=== PATIENT | female | born 1965 | race Caucasian/White ===

== ENCOUNTER 2019-09-11 09:39 | Emergency (ER) | payer BC ==
[~2019-09-11] VITALS: Ht 165.1 cm; Wt 104.3 kg
[2019-09-11] MEDS ORDERED: ONDANSETRON HCL INJ 2MG/ML 2ML 2 MG/ML VIAL IV STA (09:56)
[2019-09-11] MEDS: MORPHINE SULFATE 2 MG/ML SYR 1ML IV PRN ×2 (10:18→13:17)
[2019-09-11 10:23] LABS: BASOPHILS % 0.3 % (0.0-1.0); EOSINOPHILS % 0.2 % (0.0-6.0); HEMATOCRIT 41.3 % (34.2-44.1); HEMOGLOBIN 14.2 g/dL (12.0-16.0); LYMPHOCYTES # (AUTO) 1.6 (1.0-3.2); LYMPHOCYTES % 13.5 % (18.0-39.1); MEAN CORPUSCULAR HEMOGLOBIN 31.3 pg (28-32); MEAN CORPUSCULAR HGB CONC 34.4 g/dL (31-35); MONOCYTES # (AUTO) 0.7 (0.2-0.8); MONOCYTES % 5.8 % (4.4-11.3); NEUTROPHILS # (AUTO) 9.6 (2.1-6.9); NEUTROPHILS % 79.9 % (38.7-80.0); PLATELET COUNT 300 x10e3/uL (140-360); RED BLOOD COUNT 4.54 x10e6/uL (3.6-5.1); RED CELL DISTRIBUTION WIDTH 11.7 % (11.7-14.4)
[2019-09-11 10:31] LABS: BILIRUBIN,URINE SMALL (NEGATIVE); CLARITY,URINE CLEAR (CLEAR); COLOR,URINE YELLOW (YELLOW); KETONES,URINE >=160 (NEGATIVE); LEUKOCYTE ESTERASE ,URINE NEGATIVE (NEGATIVE); NITRITE,URINE NEGATIVE (NEGATIVE); PROTEIN,URINE DIPSTICK NEGATIVE (NEGATIVE); URINE UROBILINOGEN 0.2 mg/dL (0.2 - 1)
[2019-09-11 10:41] LABS: ALANINE AMINOTRANSFERASE 16 IU/L (0-55); ALBUMIN/GLOBULIN RATIO 1.2 (0.8-2.0); ALKALINE PHOSPHATASE 86 IU/L (40-150); ANION GAP 13.9 mmol/L (8-16); BLOOD UREA NITROGEN 6 mg/dL (7-26); BUN/CREATININE RATIO 8 (6-25); CALCIUM 9.1 mg/dL (8.4-10.2); CARBON DIOXIDE 22 mmol/L (22-29); CHLORIDE 107 mmol/L (98-107); CREATININE, SERUM 0.73 mg/dL (0.57-1.11); EST GLOMERULAR FILTRATION RATE > 60 ML/MIN (60-); GLUCOSE 129 mg/dL (74-118); POTASSIUM 3.9 mmol/L (3.5-5.1); SODIUM 139 mmol/L (136-145)
[2019-09-11 10:47] LABS: HCG,QUANTITATIVE 1.41 mIU/mL (0-10)
[2019-09-11 10:55] LABS: BACTERIA,URINE MODERATE /HPF; EPITHELIAL CELLS,URINE RARE /LPF
[2019-09-11 10:56] LABS: RBC,URINE 0-5 /HPF (0-5)
--- NOTE | 2019-09-11 11:27 | Diagnostic Imaging Report ---
Abdominal Ultrasound limited. Right upper quadrant. Clinical Diagnosis: Epigastric pain Comparison: None Technique: Multiple transaxial and longitudinal images were obtained through the right upper quadrant of the abdomen abdomen with real time ultrasonography. Low MHz transducer was utilized. Multiple images were submitted for interpretation. Report: Liver: The liver measures 11.9 cm in the right midaxillary line. There are no focal masses. There are no cysts. The echogenicity is normal. Gallbladder: The transverse diameter is within normal limits. The wall measures 3 mm. There are no shadowing stones visualized. There is no pericholecystic fluid. Sonographic Borjas's sign is negative. Biliary tree: There is no evidence of intra or extra hepatic biliary ductal dilatation. The common bile duct measures 4 mm. Portal vein: The portal vein measures 8 mm. Hepatic veins:Unremarkable. Pancreas: The pancreatic tissue is not well seen secondary to overlying bowel gas. Ascites: Absent Pleural Effusion: Absent Right kidney: The right kidney measures 9 x 4.8 x 4.8 cm. There is no mass, cyst or or hydronephrosis. IVC/Aorta: Partially seen segments demonstrate no abnormality. Impression: Unremarkable ultrasound exam of the right upper quadrant. Specifically, the gallbladder appears unremarkable. Signed by: Nicolas Alvarez MD on 09/11/2019 11:23 AM
--- NOTE | 2019-09-11 13:42 | Emergency Department Note ---
History of Present Illnes History of Present Illness Chief Complaint: Abdominal Complaints History of Present Illness This is a 54 year old female Chief Complaint Comment c/o constant epigastric pain radiating to back that started sun night after eating chili describes pain as cramping/bloating feeling denies etoh c/o n/v no diarrhea last time she vomitted was last night denies hematemesis states no chance of due to hysterectomy seen at [facility] last night for same complaint told she had cyst on pancreas still has gallbladder/appendix denies ever smoking social drinker denies drug use. Historian: Patient Arrival Mode: Car Pin Worker Required: No Onset (how long ago): day(s) (2) Location: epigastric/umbillical Quality: stabbing Radiation: Reports back Severity: severe Onset quality: gradual Duration (how long): day(s) (2) Timing of current episode: constant Progression: unchanged Chronicity: new Relieving factors: none Exacerbating factors: none Treatments prior to arrival: other (Bentyl) Past Medical/Family History Physician Review I have reviewed the patient's past medical and family history. Any updates have been documented here. Past Medical History Recent Fever: No Clinical Suspicion of Infectio: No New/Unexplained Change in Ment: No Past Medical History: Hypothyroidism Past Surgical History: Hysterectomy, Tubal Ligation Other Surgery: thyroidectomy Social History Smoking Cessation: Never Smoker Counseling Performed: No Alcohol Use: None Any Illegal Drug Use: No Physically hurt or threatened: No Other Any Pre-Existing Lines (PICC,: No Review of Systems Review of Systems Constitutional: Reports no symptoms EENTM: Reports no symptoms Cardiovascular: Reports no symptoms Respiratory: Reports no symptoms Gastrointestinal: Reports no symptoms, Reports abdominal pain, Reports diarrhea, Reports nausea Genitourinary: Reports no symptoms Musculoskeletal: Reports no symptoms Integumentary: Reports no symptoms Neurological: Reports no symptoms Psychological: Reports no symptoms Endocrine: Reports no symptoms Hematological/Lymphatic: Reports no symptoms Physical Exam Related Data Allergies: Coded Allergies: No Known Allergies (Unverified , 09/11/19) Triage Vital Signs Vital Signs Date Time Temp Pulse Resp B/P (MAP) Pulse Ox O2 Delivery O2 Flow Rate FiO2 09/11/19 09:46 98.1 72 18 167/80 98 Room Air Vital signs reviewed: Yes Physical Exam CONSTITUTIONAL Constitutional: Present well-developed, Present well-nourished, Present distressed HENT HENT: Present normocephalic, Present atraumatic, Present oropharynx clear/m oist, Present nose normal HENT L/R: Present left ext ear normal, Present right ext ear normal EYES Eyes: Reports PERRL, Reports conjunctivae normal NECK Neck: Present ROM normal PULMONARY Pulmonary: Present effort normal, Present breath sounds normal CARDIOVASCULAR Cardiovascular: Present regular rhythm, Present heart sounds normal, Present capillary refill normal, Present normal rate GASTROINTESTINAL Abdominal: Present soft, Present nontender, Present bowel sounds normal GENITOURINARY Genitourinary: Present exam deferred SKIN Skin: Present warm, Present dry MUSCULOSKELETAL Musculoskeletal: Present ROM normal NEUROLOGICAL Neurological: Present alert, Present oriented x 3, Present no gross motor or sensory deficits PSYCHOLOGICAL Psychological: Present mood/affect normal, Present judgement normal Results Laboratory Laboratory Laboratory Tests Test 09/11/19 09:56 Lab results reviewed: Yes Imaging Imaging results reviewed: Yes Diagnostics Tests Diagnostic test(s) reviewed: Yes Assessment & Plan Medical Decision Making MDM 52-year-old female with history of 2 days of abdominal pain which is getting worse. She was seen at another facility and a CT abdomen and pelvis which shows cystic lesion to the pancreas was otherwise unremarkable. She states she is taking Bentyl and Zofran at home but the pain has been worse today. Examination shows no significant abdominal tenderness but she is nauseated. She was given Zofran and morphine and feels much better. I discussed management options with her and she elects to follow up outpatient with surgery and will prescribe tramadol. Of her workup and ultrasound are unremarkable and at this time I doubt an emergent process causing her symptoms. Referral for surgery was placed and she'll return to the emergency department for new or worsening symptoms. Patient is appropriate for discharge. Part of this note was dictated with Dieudonne and is subject to recognition errors. Reassessment Reassessment time: 13:41 Reassessment NAD, well appearing. pain much relieved Assessment & Plan Final Impression: (1) Pancreatic cyst (2) Abdominal pain Depart Disposition: HOME, SELF-CARE Last Vital Signs Date Time Temp Pulse Resp B/P (MAP) Pulse Ox O2 Delivery O2 Flow Rate FiO2 09/11/19 09:46 98.1 72 18 167/80 98 Room Air Medications in the ED Morphine Sulfate 6 mg Q4H PRN IV SEVERE PAIN (7-10); Start 09/11/19 at 10:00; Stop 09/18/19 at 09:59 Ondansetron HCl 4 mg NOW STAT IV ; Start 09/11/19 at 09:56; Stop 09/11/19 at 10:04; Status DC SHIRLEY SERRA MD Sep 11, 2019 10:22
[2019-09-11] MEDS ORDERED: ULTRAM50 MG PO (13:45)
== END 2019-09-11 16:26 | disposition home or self-care (01) ==
LOC: ER 09:50
DX: R10.13 Epigastric pain (principal); K86.2 Cyst of pancreas
CPT/HCPCS: 36415; 76705; 80053; 81001; 84484; 84702; 85025; 93005; 99284; J2270; J2405